=== PATIENT | female | born 1970 | race Caucasian/White ===

== ENCOUNTER 2020-11-02 11:30 | Outpatient (CLI) | payer OTHER | END 2020-11-02 11:31 | disposition home or self-care (01) | LOC: COV 11:30 | PROVIDERS: ATTEND Internal Medicine | DX: R05 Cough (principal); R53.83 Other fatigue; R68.83 Chills (without fever); R07.0 Pain in throat; R09.81 Nasal congestion; J34.89 Other specified disorders of nose and nasal sinuses; R11.0 Nausea; Z20.822 Contact with and (suspected) exposure to COVID-19 ==

== ENCOUNTER 2020-11-06 17:08 | Outpatient (CLI) | payer OTHER | END 2020-11-06 17:09 | disposition home or self-care (01) | LOC: COV 17:08 | PROVIDERS: ATTEND Family Medicine | DX: R05 Cough (principal); M79.10 Myalgia, unspecified site; R53.83 Other fatigue; R68.83 Chills (without fever); R07.0 Pain in throat; R09.81 Nasal congestion; J34.89 Other specified disorders of nose and nasal sinuses; R11.2 Nausea with vomiting, unspecified; Z20.822 Contact with and (suspected) exposure to COVID-19 ==

== ENCOUNTER 2023-09-12 07:00 | Outpatient (CLI) | payer OTHER ==
--- NOTE | 2023-09-12 12:00 | XRAY Report ---
PROCEDURE: Knee 3V RT INDICATIONS: RIGHT KNEE PAIN TECHNIQUE: 3 views of the knee(s) were acquired. COMPARISON: None. FINDINGS: Bones: No fractures or dislocations. No suspicious bony lesions. Soft tissues: No radiographic evidence knee joint effusion. Note is made of a fabella posterior to t he knee. IMPRESSION: No acute bony abnormality. Reviewed by: Celestino Kaye MD on 09/12/2023 11:58 AM PST Approved by: Celestino Kaye MD on 09/12/2023 11:58 AM PST Station ID: [id number]
== END 2023-09-12 23:59 | disposition home or self-care (01) ==
LOC: DI.S 07:00
PROVIDERS: ATTEND Emergency Medicine
DX: M25.561 Pain in right knee (principal)